=== PATIENT | male | born 1940 | race Caucasian/White ===

== ENCOUNTER → 2016-05-25 | Outpatient (CLI) | payer MEDICARE, OTHER ==
[~2016-05-25] MED LIST: CELE200C PO; DETR2TAB PO; PREG100 PO; TAMS0.4C67 PO; ZOCO40TA PO
[2016-05-25 10:09] LABS: HEMATOCRIT 42.5 % (39.0-51.0); MEAN CELL VOLUME 91.4 FL (80.0-100.0); MEAN CORPUSCULAR HEMOGLOBIN 31.7 PG (27.0-34.0); MEAN CORPUSCULAR HGB CONC 34.7 % (32.0-36.0); PLATELET COUNT 140 TH/MM3 (150-450); RED BLOOD COUNT 4.65 MIL/MM3 (4.50-5.90); RED CELL DISTRIBUTION WIDTH 12.2 % (11.6-17.2); WHITE BLOOD COUNT 3.8 TH/MM3 (4.0-11.0)
[2016-05-25 10:15] LABS: HEMO FLAGS AUTO DIFF
[2016-05-25 10:43] LABS: HDL CHOLESTEROL 52.9 MG/DL (40.0-60.0)
[2016-05-25 11:09] LABS: EOSINOPHILS 4 % (0-4); NEUTROPHIL # MANUAL DIFF 2.4 TH/MM3 (1.8-7.7); PLATELET ESTIMATE SMEAR LOW (NORMAL); PLATELET MORPHOLOGY NORMAL (NORMAL); POLYS (SEG NEUTROPHILS) 62 % (16-70); WBC DIFF SAMPLE 100
[2016-05-25 11:10] LABS: SCAN/DIFF FINAL DIFF MANUAL
== END ==
LOC: PLAB 06:47
DX: E78.5 Hyperlipidemia, unspecified (principal); D72.819 Decreased white blood cell count, unspecified
CPT/HCPCS: 36415; 80061; 85007; 85027

== ENCOUNTER → 2016-08-30 | Outpatient (CLI) | payer MEDICARE, OTHER ==
[2016-08-30 10:02] LABS: FREE T4 0.93 NG/DL (0.76-1.46)
== END ==
LOC: PLAB 06:49
DX: E05.90 Thyrotoxicosis, unspecified without thyrotoxic crisis or storm (principal)
CPT/HCPCS: 36415; 84439; 84443